=== PATIENT | female | born 1990 | race Caucasian/White ===

== ENCOUNTER 2016-07-23 15:50 | Emergency (ER) | payer BC, MEDICAID, OTHER ==
[2016-07-23] MEDS ORDERED: [UNRECOGNIZED DRUG - OTHER] ONE (16:27)
[2016-07-23 16:33] LABS: SPECIFIC GRAVITY 1.025 (1.001-1.030); URINE BILIRUBIN NEGATIVE (NEGATIVE); URINE BLOOD TRACE (NEGATIVE); URINE GLUCOSE (UA) NEGATIVE (NEGATIVE); URINE LEUKOCYTE ESTERASE NEGATIVE (NEGATIVE); URINE NITRITE NEGATIVE (NEGATIVE); URINE PROTEIN NEGATIVE (NEGATIVE); URINE UROBILINOGEN NORMAL (0-1 mg/dl)
[2016-07-23 16:38] LABS: HCG,QUALITATIVE URINE NEGATIVE
[2016-07-23 16:39] LABS: URINE APPEARANCE CLEAR; URINE COLOR YELLOW
[2016-07-23 16:45] LABS: URINE BACTERIA 1+; URINE RBC 0-2 /hpf
[2016-07-23 17:30] LABS: SPECIFIC GRAVITY 1.015 (1.001-1.030); URINE BILIRUBIN NEGATIVE (NEGATIVE); URINE BLOOD NEGATIVE (NEGATIVE); URINE GLUCOSE (UA) NEGATIVE (NEGATIVE); URINE LEUKOCYTE ESTERASE NEGATIVE (NEGATIVE); URINE NITRITE NEGATIVE (NEGATIVE); URINE PROTEIN NEGATIVE (NEGATIVE); URINE UROBILINOGEN NORMAL (0-1 mg/dl)
[2016-07-23 17:33] LABS: URINE APPEARANCE CLEAR; URINE COLOR STRAW
[2016-07-25 13:48] LABS: CHLAMYDIA BD Negative (Negative); N.GONORRHOEAE BD Negative (Negative); SOURCE Urine (())
== END 2016-07-23 17:08 | disposition home or self-care (01) ==
LOC: ED 15:50
DX: R30.0 Dysuria (principal); R31.9 Hematuria, unspecified
CPT/HCPCS: 87491; 87591; 81025; 81003; 81001; 99283 ×2; J0330